=== PATIENT | female | born 1955 | race Caucasian/White ===

== ENCOUNTER 2016-07-27 09:54 | Emergency (ER) | payer BC ==
[2013-01-05 18:00] VITALS: BMI 25.1
[~2016-07-27 09:54] MED LIST: ACETAMINOPHEN500 M1 PO; ADDERALL 10 MG10 MG PO; ADDERALL 20 MG20 M1 PO; AMBIEN10 MG PO; LEVAQUIN750 MG PO; MAXALT10 MG PO
[2016-07-27 10:28] LABS: BASOPHILS 0.1 % (0.0-2.0); EOSINOPHILS 0.1 % (0-7); HEMATOCRIT 39.5 % (36.0-48.0); IMMATURE GRANULOCYTES 0.2 % (0-5); LYMPHOCYTES 4.5 % (15-50); MCH 28.9 pg (26.0-34.0); MCHC 32.9 g/dL (31.0-37.0); MCV 87.8 fL (80.0-100.0); MEAN PLATELET VOLUME 10.8 fL (7.4-10.4); MONOCYTES 4.9 % (2-11); NEUTROPHILS 90.2 % (40-80); RDW 13.3 % (11.5-14.5); WBC 9.3 10x3/uL (4.8-10.8)
[2016-07-27 10:31] LABS: APPEARANCE HAZY (CLEAR); COLOR DK YELLOW (YELLOW); GLUCOSE NEGATIVE (NEGATIVE); LEUKOCYTE ESTERASE 1+ (NEGATIVE); NITRITE POSITIVE (NEGATIVE); PLATELET COUNT 132 10x3/uL (130-400); PROTEIN TRACE mg/dL (NEGATIVE); SPECIFIC GRAVITY 1.015 (1.005-1.020)
[2016-07-27 10:32] LABS: BILIRUBIN NEGATIVE (NEGATIVE); KETONE MODERATE mg/dL (NEGATIVE); UROBILINOGEN NORMAL (NORMAL)
[2016-07-27 10:34] LABS: BACTERIA MODERATE /hpf (NONE SEEN); MUCUS <1+ /lpf (NONE SEEN); WHITE CELLS - URINE >50 /hpf (0-5)
[2016-07-27 10:45] LABS: ALBUMIN 3.4 g/dL (3.4-5.0); ALKALINE PHOSPHATASE 134 U/L (46-116); ALT (SGPT) 141 U/L (10-68); AMYLASE - SERUM 39 U/L (25-115); BILIRUBIN - TOTAL 1.34 mg/dL (0.2-1.3); CALC OSMOLALITY 273 mosm/kg (275-300); CALCIUM 9.5 mg/dL (8.5-10.1); CARBON DIOXIDE 25.2 mmol/L (21.0-32.0); CHLORIDE - SERUM 103 mmol/L (98-107); CREATINE KINASE 29 UL (21-215); CREATININE - SERUM 0.8 mg/dL (0.6-1.3); GLUCOSE 125 mg/dL (74-106); LIPASE 77 U/L (73-393); PROTEIN - SERUM 6.8 g/dL (6.4-8.2); SODIUM 137 mmol/L (136-145); UREA NITROGEN 9 mg/dL (7-18); eGFR NON AFRICAN AMERICAN 77 mL/min (90-120)
[2016-07-27 10:51] LABS: UDS - AMPHET NEGATIVE QUAL (NEGATIVE); UDS - BARB NEGATIVE QUAL (NEGATIVE); UDS - BENZO NEGATIVE QUAL (NEGATIVE); UDS - COCAINE NEGATIVE QUAL (NEGATIVE); UDS - METH NEGATIVE QUAL (NEGATIVE); UDS - OPIATE NEGATIVE QUAL (NEGATIVE); UDS - PCP NEGATIVE QUAL (NEGATIVE); UDS - THC NEGATIVE QUAL (NEGATIVE)
== END 2016-07-27 12:27 | disposition home or self-care (01) ==
LOC: D.ER 09:54
PROVIDERS: Family Medicine
DX: N39.0 Urinary tract infection, site not specified (principal)

== ENCOUNTER → 2017-08-19 13:17 | Outpatient (CLI) | payer BC ==
[2013-01-05 18:00] VITALS: BMI 25.1
== END | disposition home or self-care (01) ==
LOC: D.CT 08-18 14:30
DX: H92.03 Otalgia, bilateral (principal); J32.9 Chronic sinusitis, unspecified

== ENCOUNTER → 2018-03-31 16:48 | Outpatient (CLI) | payer BC ==
[2013-01-05 18:00] VITALS: BMI 25.1
== END | disposition home or self-care (01) ==
LOC: D.LABREF 16:48
DX: L72.8 Other follicular cysts of the skin and subcutaneous tissue (principal)

== ENCOUNTER → 2018-04-15 11:18 | Outpatient (CLI) | payer BC ==
[2013-01-05 18:00] VITALS: BMI 25.1
== END | disposition home or self-care (01) ==
LOC: D.LABREF 11:18
DX: L98.8 Other specified disorders of the skin and subcutaneous tissue (principal)

== ENCOUNTER → 2018-09-25 13:48 | Outpatient (CLI) | payer BC ==
[2013-01-05 18:00] VITALS: BMI 25.1
== END | disposition home or self-care (01) ==
LOC: D.LABREF 13:48
PROVIDERS: ATTEND Surgery
DX: L90.5 Scar conditions and fibrosis of skin (principal)

== ENCOUNTER → 2019-04-13 11:26 | Outpatient (CLI) | payer BC ==
[2013-01-05 18:00] VITALS: BMI 25.1
[2019-04-13 11:49] LABS: APPEARANCE CLEAR (CLEAR); BILIRUBIN NEGATIVE (NEGATIVE); COLOR YELLOW (YELLOW); GLUCOSE NEGATIVE (NEGATIVE); KETONE NEGATIVE (NEGATIVE); NITRITE NEGATIVE (NEGATIVE); PROTEIN NEGATIVE (NEGATIVE); SPECIFIC GRAVITY 1.005 (1.005-1.020); UROBILINOGEN NORMAL (NORMAL)
== END | disposition home or self-care (01) ==
LOC: D.LABREF 11:26
PROVIDERS: ATTEND Surgery
DX: N39.0 Urinary tract infection, site not specified (principal)

== ENCOUNTER → 2020-11-22 13:51 | Outpatient (CLI) | payer BC ==
[2013-01-05 18:00] VITALS: BMI 25.1
[2020-11-22 14:27] LABS: BASOPHILS 0.5 % (0-2); BILIRUBIN NEGATIVE (NEGATIVE); HEMATOCRIT 40.7 % (36.0-48.0); HEMOGLOBIN 13.2 g/dL (12-16); IMMATURE GRANULOCYTES 0.2 % (0-5); KETONE NEGATIVE (NEGATIVE); LYMPHOCYTE ABS# 1.51 10x3/uL (1.18-3.74); LYMPHOCYTES 23.6 % (15-50); MCH 28.1 pg (26.0-34.0); MCHC 32.4 g/dL (31.0-37.0); MCV 86.8 fL (80.0-100.0); MEAN PLATELET VOLUME 10.9 fL (7.4-10.4); MONOCYTES 5.9 % (2-11); NEUTROPHIL ABS# 4.35 10x3/uL (1.56-6.13); NEUTROPHILS 67.8 % (40-80); NITRITE NEGATIVE (NEGATIVE); RBC 4.69 10x6/uL (4.00-5.40); RDW 13.3 % (11.5-14.5); UROBILINOGEN NORMAL mg/dL (< 2); WBC 6.4 10x3/uL (4.8-10.8)
[2020-11-22 14:28] LABS: PLATELET COUNT 285 10x3/uL (130-400)
[2020-11-22 14:33] LABS: ALBUMIN 4.2 g/dL (3.4-5.0); ALKALINE PHOSPHATASE 68 U/L (30-120); ALT (SGPT) 42 U/L (10-68); BILIRUBIN - TOTAL 0.43 mg/dL (0.2-1.3); CALC OSMOLALITY 286 mosm/kg (275-300); CALCIUM 9.4 mg/dL (8.5-10.1); CARBON DIOXIDE 28.7 mmol/L (21.0-32.0); CHLORIDE - SERUM 104 mmol/L (98-107); CREATININE - SERUM 0.8 mg/dL (0.6-1.3); GLUCOSE 117 mg/dL (74-106); POTASSIUM - SERUM 3.8 mmol/L (3.5-5.1); PROTEIN - SERUM 7.2 g/dL (6.4-8.2); SODIUM 142 mmol/L (136-145); UREA NITROGEN 20 mg/dL (7-18); eGFR NON AFRICAN AMERICAN 76 mL/min (90-120)
== END | disposition home or self-care (01) ==
LOC: D.LAB 13:51
PROVIDERS: ATTEND Surgery
DX: D64.9 Anemia, unspecified (principal); R53.82 Chronic fatigue, unspecified